=== PATIENT | female | born 1975 | race Caucasian/White ===

== ENCOUNTER 2017-12-15 13:38 | Emergency (ER) | payer BC ==
[~2017-12-15] VITALS: Ht 170.2 cm; Wt 71.8 kg
[2017-12-15 16:22] LABS: HEMATOCRIT 37.8 % (36.0-46.0); MCH 30.5 PG (29.0-34.0); MCHC 34.4 G/DL (30.0-36.0); MCV 88.7 FL (83-99); PLATELET COUNT 282 K/uL (156-360); RBC DIS.WIDTH-CV 12.5 % (11.8-14.6); RBC DIS.WIDTH-SD 40.8 % (39-53); RED BLOOD COUNT 4.26 M/uL (3.80-5.20); WHITE BLOOD COUNT 11.9 K/uL (4.1-10.2)
[2017-12-15 16:30] LABS: ALBUMIN 3.8 g/dL (3.2-4.8); CHLORIDE 107 mEq/L (99-109); POTASSIUM 3.7 mEq/L (3.7-5.4); SODIUM 138 mEq/L (136-147)
[2017-12-15 16:33] LABS: GLUCOSE 93 mg/dL (70-99); TOTAL PROTEIN 6.4 g/dL (6.4-8.3)
[2017-12-15 16:35] LABS: TOTAL BILIRUBIN 0.4 mg/dL (0.0-1.0)
[2017-12-15 16:36] LABS: ALKALINE PHOSPHATASE 71 IU/L (3-129); CREATININE 0.8 mg/dL (0.6-1.3); GFR ESTIMATE (CALCULATED) > 59 mL/min/
[2017-12-15 16:37] LABS: UREA NITROGEN (BUN) 9 mg/dL (9-23)
[2017-12-15 16:38] LABS: AST (GOT) 16 IU/L (2-34)
[2017-12-15 16:39] LABS: ALT (GPT) 19 IU/L (3-49)
[2017-12-15 16:46] LABS: QUANTITATIVE HCG < 4.0 MIU/ML
[2017-12-15] MEDS ORDERED: MOTRIN800 MG PO (17:58)
[2017-12-15] MEDS ORDERED: REGLAN10 MG PO (17:58)
[2017-12-15 18:05] VITALS: BP 137/77
== END 2017-12-15 18:31 | disposition home or self-care (01) ==
LOC: EME 13:38
PROVIDERS: Nurse Practitioner Family
DX: G43.909 Migraine, unspecified, not intractable, without status migrainosus (principal); F17.200 Nicotine dependence, unspecified, uncomplicated
CPT/HCPCS: 80053; 84702; 85027; 99281; 99284; J1885

== ENCOUNTER 2018-01-30 15:12 | Emergency (ER) | payer BC ==
[~2018-01-30] VITALS: Ht 167.6 cm; Wt 70.7 kg
[~2018-01-30 15:12] MED LIST: MOTRIN800 MG PO; REGLAN10 MG PO
[2018-01-30 16:26] LABS: HEMATOCRIT 41.6 % (36.0-46.0); HEMOGLOBIN 14.2 G/DL (11.9-15.5); MCH 30.5 PG (29.0-34.0); MCHC 34.1 G/DL (30.0-36.0); MCV 89.5 FL (83-99); PLATELET COUNT 286 K/uL (156-360); RBC DIS.WIDTH-CV 12.8 % (11.8-14.6); RBC DIS.WIDTH-SD 42.1 % (39-53); RED BLOOD COUNT 4.65 M/uL (3.80-5.20); WHITE BLOOD COUNT 9.9 K/uL (4.1-10.2)
[2018-01-30 16:39] LABS: CHLORIDE 106 mEq/L (99-109); POTASSIUM 4.2 mEq/L (3.7-5.4); SODIUM 139 mEq/L (136-147)
[2018-01-30 16:41] LABS: GLUCOSE 93 mg/dL (70-99)
[2018-01-30 16:45] LABS: GFR ESTIMATE (CALCULATED) > 59 mL/min/; UREA NITROGEN (BUN) 13 mg/dL (9-23)
[2018-01-30] MEDS ORDERED: CAMILA0.35 MG PO (18:56)
[2018-01-30] MEDS ORDERED: TOPIRAMATE25 MG PO (18:57)
[2018-01-30] MEDS ORDERED: IBUPROFEN800 MG PO (18:59)
[2018-01-30] MEDS ORDERED: RIZATRIPTAN10 MG PO (18:59)
[2018-01-31 01:00] VITALS: BP 125/80
== END 2018-01-31 00:30 | disposition short-term general hospital (02) ==
LOC: EME 15:12
PROVIDERS: Nurse Practitioner Family
DX: G93.89 Other specified disorders of brain (principal); R51 Headache; H53.2 Diplopia; Z87.891 Personal history of nicotine dependence
CPT/HCPCS: 70553; 80048; 85027; 99281; 99285; J7030